=== PATIENT | female | born 1955 | race Caucasian/White ===

== ENCOUNTER 2021-10-09 11:29 | Outpatient (CLI) | payer OTHER, SELFPAY ==
--- NOTE | 2021-10-09 11:40 | CRLHL7_ITS ---
For Patients: As a result of the Century Cures Act, medical imaging exams and procedure reports are released immediately into your electronic medical record. You may view this report before your referring provider. If you have questions, please contact your health care provider. BILATERAL MAMMOGRAM WITH COMPUTER-AIDED DETECTION AND TOMOSYNTHESIS TECHNIQUE: CC and MLO views were obtained. These mammographic images have been obtained using full-field digital technique. These mammographic images were interpreted with the benefit of computer-aided detection. Breast Tomosynthesis was used in this interpretation. COMPARISON FILM: 08/26/2020, 05/25/2019, 01/18/2018. FINDINGS: The breasts are almost entirely fatty IMPRESSION: There is no radiographic evidence for malignancy. ASSESSMENT: BI-RADS Category 1: Negative RECOMMENDATION: Routine screening mammogram in 1 year. A lay language report of this examination will be provided to the patient. Wagner Soto M.D. Diagnostic Radiologist [email or web address] DANIEL/Dictated by: Wagner Soto MD @ 10/10/2021 10:22:00 AM (Electronically Signed)
== END 2021-10-09 11:30 | disposition home or self-care (01) ==
LOC: MAMMO 11:32
PROVIDERS: PCP Internal Medicine; Visit Provider Internal Medicine
DX: Z12.31 Encounter for screening mammogram for malignant neoplasm of breast (principal)
CPT/HCPCS: 77063; 77067

== ENCOUNTER 2022-10-27 08:17 | Outpatient (CLI) | payer OTHER, SELFPAY | END 2022-10-27 08:18 | disposition home or self-care (01) | LOC: NFLDREF 10-28 11:49 | PROVIDERS: PCP Internal Medicine; Referring Provider Internal Medicine; Visit Provider Internal Medicine | DX: M85.80 Other specified disorders of bone density and structure, unspecified site (principal); E78.5 Hyperlipidemia, unspecified; I10 Essential (primary) hypertension | CPT/HCPCS: 80053; 80061; 82306 ==

== ENCOUNTER 2023-02-15 13:45 | Outpatient (CLI) | payer OTHER, SELFPAY ==
--- NOTE | 2023-02-15 14:00 | CRLHL7_ITS ---
For Patients: As a result of the Century Cures Act, medical imaging exams and procedure reports are released immediately into your electronic medical record. You may view this report before your referring provider. If you have questions, please contact your health care provider. BILATERAL SCREENING MAMMOGRAM WITH COMPUTER-AIDED DETECTION AND TOMOSYNTHESIS TECHNIQUE: CC and MLO views were obtained. These mammographic images have been obtained using full-field digital technique. These mammographic images were interpreted with the benefit of computer-aided detection. Breast Tomosynthesis was used in this interpretation. COMPARISON FILM: 10/09/21, 08/26/20, 05/25/19. FINDINGS: There are scattered areas of fibroglandular density IMPRESSION: There is no radiographic evidence for malignancy. ASSESSMENT: BI-RADS Category 1: Negative RECOMMENDATION: Routine screening mammogram in 1 year. A lay language report of this examination will be provided to the patient. Wagner Soto M.D. Diagnostic Radiologist [email or web address] DANIEL/Dictated by: Wagner Soto MD @ 02/16/2023 8:53:00 AM (Electronically Signed)
== END 2023-02-15 13:46 | disposition home or self-care (01) ==
LOC: MAMMO 13:45
PROVIDERS: PCP Internal Medicine; Visit Provider Internal Medicine
DX: Z12.31 Encounter for screening mammogram for malignant neoplasm of breast (principal)
CPT/HCPCS: 77063; 77067

== ENCOUNTER 2023-09-29 10:30 | Outpatient (RCR) | payer OTHER, SELFPAY | END 2023-12-27 08:59 | disposition home or self-care (01) | PROVIDERS: PCP Internal Medicine; Visit Provider Orthopaedic Surgery | DX: M70.61 Trochanteric bursitis, right hip (principal); M17.11 Unilateral primary osteoarthritis, right knee; Z51.89 Encounter for other specified aftercare; M16.11 Unilateral primary osteoarthritis, right hip | CPT/HCPCS: 97110; 97140; 97161; 97535 ==

== ENCOUNTER 2023-10-20 08:57 | Outpatient (CLI) | payer OTHER, SELFPAY ==
--- OUTSIDE RECORDS SUMMARY | 2023-10-20 09:01 | XMS_ITS | Referral Summary ---
Author Organization [place] Address [address] [place] [address] Care Team Providers Care Ip Counsel Name Role Phone Carolina Celis MD Primary Care Provider [phone] Allergies Active Allergy Reactions Criticality Noted Date Comments Amoxicillin 12/24/2017 Intermediate hives Cephalosporins Hives 12/24/2017 Sulfa Antibiotics Hives 12/24/2017 Medications Medication Sig Dispensed Refills Start Date End Date Status LISINOPRIL PO Take 5 mg by mouth daily Active [place]-3 Fatty Acids (OMEGA 3 PO) Take 1 capsule by mouth daily Active Calcium Carb-Cholecalciferol 600-400 MG-UNIT CAPS Take 1 tablet by mouth daily Active Multiple Vitamins-Minerals (MULTIVITAMIN ADULT PO) Take 1 tablet by mouth daily Active Social History Tobacco Use Types Packs/Day Years Used Date Smoking Tobacco: Never Smokeless Tobacco: Never Alcohol Use Standard Drinks/Week Comments Yes 0 (1 standard drink = 0.6 oz pur e alcohol) RARELY Sex and Gender Information Value Date Recorded Sex Assigned at Not on file Gender Identity Not on file Sexual Orientation Not on file Last Filed Vital Signs Vital Sign Reading Time Taken Comments Blood Pressure 117/67 01/10/2018 8:18 AM CDT Pulse 65 12/27/2017 6:29 AM CDT Temperature 36.7 ??C (98 ??F) 01/10/2018 6:37 AM CDT Respiratory Rate 16 01/10/2018 7:54 AM CDT Oxygen Saturation 97% 01/10/2018 8:18 AM CDT Inhaled Oxygen Concentration - - Weight 76.3 kg (168 lb 4 oz) 01/05/2018 7:00 AM CDT Height 165.1 cm (5' 5) 01/05/2018 7:00 AM CDT Body Mass Index 28 01/05/2018 7:00 AM CDT Plan of Treatment Not on file Medical Devices Implanted Type Area Fat Purification Worker Device Identifier Shelf Expiration Date Model / Serial / Lot Eye Imp Iol [place] Pcl Tecnis Zcb00 17.0 Implanted:Qty : 1 on 12/27/2017 by Colin Michael MD at [facility] Lens/Eye Implant Left: Eye ADVANCED [employer]ICAL OPT 10/13/2021 ZCB00 17.0 / [id number] / Eye Imp Iol Luis A Pcl Tecnis Zcb00 18.0 Implanted:Qty : 1 on 01/10/2018 by Colin Michael MD at [facility] Lens/Eye Implant Right: Eye ADVANCED MEDICAL OPT 06/08/2021 ZCB00 18.0 / [id number] / Care Teams Ip Counsel Relationship Specialty Start Date End Date Carolina Celis MD [facility] [address] [place] [address] PCP - General Internal Medicine 12/21/17
--- OUTSIDE RECORDS SUMMARY | 2023-10-20 09:01 | XMS_ITS | Clinical Summary ---
Author Organization [place] Address [address] [place] [address] Care Team Providers Care Veneer Supervisor Name Role Phone Carolina Celis MD Primary Care Provider Allergies Active Allergy Reactions Criticality Noted Date Comments Amoxicillin 12/24/2017 Intermediate hives Cephalosporins Hives 12/24/2017 Sulfa Antibiotics Hives 12/24/2017 Medications Medication Sig Dispensed Refills Start Date End Date Status LISINOPRIL PO Take 5 mg by mouth daily Active [place]-3 Fatty Acids (OMEGA 3 PO) Take 1 [...] on file Medical Devices Implanted Type Area Abnormal Psychology Teacher Device Identifier Shelf Expiration Date Model / Serial / Lot Eye Imp Iol [place] Pcl Tecnis Zcb00 17.0 Implanted:Qty : 1 on 12/27/2017 by Colin Michael MD at [facility] Lens/Eye Implant Left: Eye ADVANCED MEDICAL OPT 10/13/2021 ZCB00 17.0 / [id number] / Eye Imp Iol Luis A Pcl Tecnis Zcb00 18.0 Implanted:Qty : 1 on 01/10/2018 by Colin Michael MD at [facility] Lens/Eye Implant Right: Eye ADVANCED MEDICAL OPT 06/08/2021 ZCB00 18.0 / [id number] / Care Teams Veneer Supervisor Relationship Specialty Start Date End Date Carolina Celis MD [facility] [address] [place] [address] PCP - General Internal Medicine 12/21/17
--- NOTE | 2023-10-20 09:15 | CRLHL7_ITS ---
For Patients: As a result of the Century Cures Act, medical imaging exams and procedure reports are released immediately into your electronic medical record. You may view this report before your referring provider. If you have questions, please contact your health care provider. Indication: Trochanteric bursitis, right hip Comparison: 09/01/2023 Procedure : Informed consent was obtained. The site was marked. Time-out was performed. The skin of the right hip was cleansed with ChloraPrep. A sterile drape was placed. 8 cc of 1 percent lidocaine was administered for superficial anesthesia. Subsequently a 22 gauge spinal needle was introduced into the right hip joint under intermittent fluoroscopic guidance. 7 cc 1 percent lidocaine and 2 cc 40 milligram/cc Depo-Medrol then injected into the right hip joint. The needle was removed and hemostasis achieved with direct pressure. A dressing was placed. The patient tolerated the procedure well without immediate complication. Total fluoroscopy time 6 seconds. Impression: Successful fluoroscopically guided right hip injection with 80 milligrams of Depo-Medrol. Dictated by Wagner Soto MD @ 10/20/2023 11:31:43 AM (Electronically Signed)
== END 2023-10-20 08:58 | disposition home or self-care (01) ==
LOC: RAD 08:59
PROVIDERS: PCP Internal Medicine; Visit Provider Orthopaedic Surgery
DX: M70.61 Trochanteric bursitis, right hip (principal); M16.11 Unilateral primary osteoarthritis, right hip
CPT/HCPCS: 20610; 77002; J1010; Q9966

== ENCOUNTER 2023-12-17 07:50 | Outpatient (CLI) | payer OTHER, SELFPAY ==
--- OUTSIDE RECORDS SUMMARY | 2023-12-21 04:06 | XMS_ITS | Referral Summary ---
Author Organization [place] Address [address] [place] [address] Care Team Providers Care Textile Clothing And Footwear Mechanic Name Role Phone Carolina Celis MD Primary Care Provider Allergies Active Allergy Reactions Criticality Noted Date Comments Amoxicillin 12/24/2017 Intermediate hives Cephalosporins Hives 12/24/2017 Sulfa Antibiotics Hives 12/24/2017 Medications Medication Sig Dispensed Refills Start Date End Date Status LISINOPRIL PO Take 5 mg by mouth daily Active [place]-3 Fatty Acids (OMEGA 3 PO) Take 1 [...] on file Medical Devices Implanted Type Area Ruby Developer Device Identifier Shelf Expiration Date Model / Serial / Lot Eye Imp Iol [place] Pcl Tecnis Zcb00 17.0 Implanted:Qty : 1 on 12/27/2017 by Colin Michael MD at [facility] Lens/Eye Implant Left: Eye ADVANCED MEDICAL OPT 10/13/2021 ZCB00 17.0 / [id number] / Eye Imp Iol Luis A Pcl Tecnis Zcb00 18.0 Implanted:Qty : 1 on 01/10/2018 by Colin Michael MD at [facility] Lens/Eye Implant Right: Eye ADVANCED MEDICAL OPT 06/08/2021 ZCB00 18.0 / [id number] / Care Teams Textile Clothing And Footwear Mechanic Relationship Specialty Start Date End Date Carolina Ceils MD [facility] [address] [place] [address] PCP - General Internal Medicine 12/21/17
--- OUTSIDE RECORDS SUMMARY | 2023-12-21 04:06 | XMS_ITS | Clinical Summary ---
Author Organization [place] Address [address] [place] [address] Care Team Providers Care Aircraft Stress Analyst Name Role Phone Carolina Celis MD Primary Care Provider [phone] Allergies Active Allergy Reactions Criticality Noted Date Comments Amoxicillin 12/24/2017 Intermediate hives Cephalosporins Hives 12/24/2017 Sulfa Antibiotics Hives 12/24/2017 Medications Medication Sig Dispensed Refills Start Date End Date Status LISINOPRIL PO Take 5 mg by mouth daily Active [place]-3 Fatty Acids (OMEGA 3 PO) Take 1 [...] on file Medical Devices Implanted Type Area Chip Mixing Machine Operator Device Identifier Shelf Expiration Date Model / Serial / Lot Eye Imp Iol [place] Pcl Tecnis Zcb00 17.0 Implanted:Qty : 1 on 12/27/2017 by Colin Michael MD at [facility] Lens/Eye Implant Left: Eye ADVANCED MEDICAL OPT 10/13/2021 ZCB00 17.0 / [id number] / Eye Imp Iol Luis A Pcl Tecnis Zcb00 18.0 Implanted:Qty : 1 on 01/10/2018 by Colin Michael MD at [facility] Lens/Eye Implant Right: Eye ADVANCED MEDICAL OPT 06/08/2021 ZCB00 18.0 / [id number] / Care Teams Aircraft Stress Analyst Relationship Specialty Start Date End Date Carolina Celis MD [facility] [address] [place] [address] PCP - General Internal Medicine 12/21/17
== END 2023-12-17 07:51 | disposition home or self-care (01) ==
LOC: NFLDREF 12-21 04:04
PROVIDERS: PCP Internal Medicine; Referring Provider Internal Medicine; Visit Provider Internal Medicine
DX: M85.80 Other specified disorders of bone density and structure, unspecified site (principal); K76.0 Fatty (change of) liver, not elsewhere classified; I10 Essential (primary) hypertension
CPT/HCPCS: 80053; 80061; 82306

== ENCOUNTER 2024-02-17 13:53 | Outpatient (CLI) | payer OTHER, SELFPAY ==
--- OUTSIDE RECORDS SUMMARY | 2024-02-17 13:55 | XMS_ITS | Clinical Summary ---
Author Organization [place] Address [address] [place] [address] Care Team Providers Care Final Canoe Inspector Name Role Phone Carolina Celis MD Primary Care Provider [phone] Allergies Active Allergy Reactions Criticality Noted Date Comments Amoxicillin 12/24/2017 Intermediate hives Cephalosporins Hives 12/24/2017 Sulfa Antibiotics Hives 12/24/2017 Medications LISINOPRIL PO Take 5 mg by mouth daily Active [place]-3 Fatty Acids (OMEGA 3 PO) Take 1 capsule by mouth daily Active Calcium Carb-Cholecalci ferol 600-400 MG-UNIT CAPS Take 1 tablet by mouth daily Active Multiple Vitamins-[place] (MULTIVITAMIN ADULT PO) Take 1 tablet by mouth daily Active Social History Tobacco Use Types Packs/Day Years Used Date Smoking Tobacco: Never Smokeless Tobacco: Never Alcohol Use Standard Drinks/Week Comments Yes 0 (1 standard drink = 0.6 oz pur e alcohol) RARELY Comments No Sex and Gender Information Value Date Recorded Sex Assigned at Not on file Legal Sex 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 Gender Identity Not on file Sexual Orientation [...] on file Medical Devices Implanted Type Area Plant Technical Specialist Device Identifier Shelf Expiration Date Model / Serial / Lot Eye Imp Iol [place] Pcl Tecnis Zcb00 17.0 Implanted:Qty : 1 on 12/27/2017 by Colin Michael MD at [facility] Lens/Eye Implant Left: Eye ADVANCED MEDICAL OPT 10/13/2021 ZCB00 17.0 / [id number] / Eye Imp Iol [place] Pcl Tecnis Zcb00 18.0 Implanted:Qty : 1 on 01/10/2018 by Colin Michael MD at [facility] Lens/Eye Implant Right: Eye ADVANCED MEDICAL OPT 06/08/2021 ZCB00 18.0 / [id number] / [facility] Care Teams Final Canoe Inspector Relationship Specialty Start Date End Date Carolina Celis MD [facility] [address] [place] [address] PCP - General Internal Medicine 12/21/17
--- NOTE | 2024-02-17 14:00 | CRLHL7_ITS ---
For Patients: As a result of the Century Cures Act, medical imaging exams and procedure reports are released immediately into your electronic medical record. You may view this report before your referring provider. If you have questions, please contact your health care provider. BILATERAL SCREENING MAMMOGRAM WITH COMPUTER-AIDED DETECTION AND TOMOSYNTHESIS TECHNIQUE: CC and MLO views were obtained. These mammographic images have been obtained using full-field digital technique. These mammographic images were interpreted with the benefit of computer-aided detection. Breast Tomosynthesis was used in this interpretation. COMPARISON FILM: 02/15/23, 10/09/21, 08/26/20. FINDINGS: There are scattered areas of fibroglandular density. IMPRESSION: There is no radiographic evidence for malignancy. ASSESSMENT: BI-RADS Category 1: Negative RECOMMENDATION: Routine screening mammogram in 1 year. A lay language report of this examination will be provided to the patient. Wagner Soto M.D. Diagnostic Radiologist [email or web address] SP/Dictated by: Wagner Soto MD @ 02/18/2024 12:38:00 PM (Electronically Signed)
== END 2024-02-17 13:54 | disposition home or self-care (01) ==
LOC: MAMMO 13:54
PROVIDERS: PCP Internal Medicine; Visit Provider Internal Medicine
DX: Z12.31 Encounter for screening mammogram for malignant neoplasm of breast (principal)
CPT/HCPCS: 77063; 77067

== ENCOUNTER 2025-02-13 01:10 | Day surgery (SDC) | payer OTHER, SELFPAY ==
[2025-02-13] VITALS (33 sets, daily range): BP systolic 111–206; BP diastolic 51–78; PULSE 52–78; RESP 14–20; TEMP 36–37.3; O2SAT 87–97; BMI 29.6; BMI 29.5
--- OUTSIDE RECORDS SUMMARY | 2025-02-13 01:11 | XMS_ITS | Clinical Summary ---
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 Gender Identity Not on file Sexual Orientation Not on file Last Filed Vital Signs Vital Sign Reading Time Taken Comments Blood Pressure 117/67 01/10/2018 8:18 AM CDT Pulse 65 12/27/2017 6:29 AM CDT Temperature 36.7 C (98 F) 01/10/2018 6:37 AM CDT Respiratory Rate 16 01/10/2018 7:54 AM CDT Oxygen Saturation 97% 01/10/2018 8:18 AM CDT Inhaled Oxygen Concentration - - Weight 76.3 kg (168 lb 4 oz) 01/05/2018 7:00 AM CDT Height 165.1 cm (5' 5) 01/05/2018 7:00 AM CDT Body Mass Index 28 01/05/2018 7:00 AM CDT Plan of Treatment Not on file Medical Devices Implanted Type Area State Assessed Properties Director Device Identifier Shelf Expiration Date Model / Serial / Lot Eye Imp Iol [place] Pcl Tecnis Zcb00 17.0 Implanted:Qty : 1 on 12/27/2017 by Colin Michael MD at [facility] Lens/Eye Implant Left: Eye ADVANCED MEDICAL OPT 10/13/2021 ZCB00 17.0 / [id number] / Eye Imp Iol [place] Pcl Tecnis Zcb00 18.0 Implanted:Qty : 1 on 01/10/2018 by Colin Michael MD at [facility] Lens/Eye Implant Right: Eye ADVANCED MEDICAL OPT 06/08/2021 ZCB00 18.0 / [id number] / [facility] Care Teams Architectural Examiner Relationship Specialty Start Date End Date Carolina Celis MD [facility] [address] [place] [address] PCP - General Internal Medicine 12/21/17
--- NOTE | 2025-02-13 01:29 | ED.GENADULT ---
HPI - General Adult General Time Seen by Provider: 01:29 Date Seen: 02/13/25 Chief complaint: Nausea/Vomiting Stated complaint: Vomiting, pain around ribs Time Seen by Provider: 02/13/25 01:13 Source: patient and RN notes reviewed Mode of arrival: ambulatory Limitations: no limitations History of Present Illness HPI narrative: This 69-year-old female had sudden onset of vomiting starting around 9:00 p.m. tonight. She has developed bilateral lower rib pain which she thinks might be from vomiting so much. She states she had a temperature of 100.1? F at home. She tried Tums without relief. She has had no headache, no diarrhea or any other respiratory symptoms associated with this. She does believes that she was having a little upper abdominal discomfort before the vomiting, did have some nausea. Thought maybe she had indigestion which prompted the Tums. She did subsequently start having emesis. It is turned into greenish bile/bilious at this point. No blood. She still has her gallbladder in place, notes her sister in both of her parents have had their gallbladder out. She ate out for lunch, just had a bowl of cereal around 7:00 p.m. she states she is hurting in her rib areas but actually is pointing to her upper abdomen lower rib borders bilaterally. Related Data Home Medications ?Medication ?Instructions ?Recorded ?Confirmed acyclovir 200 mg capsule 200 mg PO 5XD PRN 10/29/22 02/13/25 calcium 600 mg (as 1 tab PO DAILY 10/29/22 02/13/25 carbonate)-vitamin D3 10 mcg (400 unit) tablet multivitamin (Multiple Vitamins 1 tab PO DAILY 10/29/22 02/13/25 tablet) lisinopril 10 mg tablet 10 mg PO DAILY 02/13/25 02/13/25 Previous Rx's ?Medication ?Instructions ?Recorded hydrocodone 5 mg-acetaminophen 325 1 tab PO Q6H PRN pain #15 tabs 02/13/25 mg tablet sennosides 8.6 mg capsule (senna) 8.6 mg PO DAILY PRN constipation 02/13/25 #90 caps Allergies Allergy/AdvReac Type Severity Reaction Status Date / Time amoxicillin Allergy Intermediate Hives Verified 02/13/25 01:26 Cephalosporins Allergy Intermediate Hives Verified 02/13/25 01:26 Sulfa drugs Allergy Intermediate Hives Uncoded 12/21/23 10:33 Review of Systems Status of ROS: Reports: 6 or more systems reviewed and unremarkable except as noted in History and below PFSH [facility] Medical History (Updated 02/13/25 @ 09:52 by Amy Velázquez MD) Chronic migraine without aura ?G43.709 - Chronic migraine without aura, not intractable, without status migrainosus (ICD-10) Osteopenia (2016) ?M85.80 - Other specified disorders of bone density and structure, unspecified site (ICD-10) Greater trochanteric bursitis of right hip ?M70.61 - Trochanteric bursitis, right hip (ICD-10) Degenerative joint disease of knee, right ?M17.11 - Unilateral primary osteoarthritis, right knee (ICD-10) Degenerative joint disease of right hip ?M16.11 - Unilateral primary osteoarthritis, right hip (ICD-10) Cerebral cavernous malformation ?Q28.3 - Other malformations of cerebral vessels (ICD-10) Fatty infiltration of liver ?K76.0 - Fatty (change of) liver, not elsewhere classified (ICD-10) Essential hypertension ?I10 - Essential (primary) hypertension (ICD-10) Surgical History History of surgery on lower extremity ?Z98.890 - Other specified postprocedural states (ICD-10) History of squamous cell carcinoma excision ?Z98.890 - Other specified postprocedural states (ICD-10) ?Z85.9 - Personal history of malignant neoplasm, unspecified (ICD-10) History of basal cell carcinoma excision ?Z98.890 - Other specified postprocedural states (ICD-10) ?Z85.828 - Personal history of other malignant neoplasm of skin (ICD-10) History of tubal ligation (01/03/13) ?Z98.51 - Tubal ligation status (ICD-10) History of bilateral cataract extraction (2018) ?Z98.41 - Cataract extraction status, right eye (ICD-10) ?Z98.42 - Cataract extraction status, left eye (ICD-10) Social History (Updated 02/13/25 @ 09:51 by Amy Velázquez MD) Narrative: Lives with , adult children. Nonsmoker, rare ETOH. What is your current living situation?: I presently have a place to live Problems where you live: no known problems In the past 12 months, utilities in danger of being shut off: no In past 12 months, lack of transportation kept you from medical appts, meetings, work, or getting things needed for daily living: no In the past 12 mos, have been you worried that your food would run out before you had money to buy more?: never true In the past 12 mos, the food you bought just didn't last and you didn't have money to buy more?: never true Smoking Status: Never smoker Do you use any of these nicotine containing products: None How often do you have a drink containing alcohol: monthly or less Alcohol type: wine How often do you have six or more drinks on one occasion: Never AUDIT-C Alcohol total score: 1 Non-prescribed substance use: denies use Caffeine: Yes How often does anyone, including family, friends and others, physically hurt you: never How often does anyone, including family, friends and others, insult or talk down to you: never How often does anyone, including family, friends and others, threaten you with harm: never How often does anyone, including family, friends and others, scream or curse at you: never service: No Exam Const: Vital Signs, click to edit/add: Vital Signs - 24 hr 02/14/25 02:05 02/14/25 06:00 Temperature 98.8 F 98.3 F Pulse Rate [Pulse Oximeter] 53 L 53 L Respiratory Rate 15 17 Blood Pressure [Le ft Arm] 108/51 L 137/62 Pulse Oximetry 93 93 Oxygen Delivery Me thod Room Air Room Air This 6-year-old female is alert, interactive, no apparent distress, very well kept and pleasant. Sclera clear come conjugate gaze, face atraumatic, no rash. Lungs are clear come good air entry, no wheezing crackles, no tachypnea, no accessory muscle use. CV regular rate and rhythm, no murmur, normal S1-S2. Abdomen is soft, nondistended, bowel sounds are present. She has some mild left upper quadrant tenderness becoming more tender on palpation with increased pain in the epigastric and right upper quadrant areas. She may even be considered to have a little bit of guarding in the epigastric and right upper quadrant area but no rebound noted. I do not feel any organomegaly or masses. Skin visualized without jaundice. Documenting provider has reviewed patient's vital signs: yes Course Course ED Course: Patient will have an IV placed, treat her symptoms with a L of IV fluids, 4 mg IV Zofran and 4 mg IV morphine. She will be put on pulse oximetry to monitor respiratory status given the IV narcotic. Will proceed with CT imaging, ultrasonography is not in house at this time, this will make sure that there is no pancreatitis. Certainly could be cholelithiasis and do need to consider cholecystitis with this patient. Will get a full complement of labs. She may end up needing ultrasonography as well and will consider this pending our workup as ordered. Reevaluation(s) Time of Reevaluation #1: 02:28 Reevaluation #1: Patient states the morphine helped some, is still uncomfortable to the point that she would like more pain medicines. Will order 2 more mg IV morphine. Consider escalation to other medications if this does not help. Awaiting CT imaging. Time of Reevaluation #2: 04:11 Reevaluation #2: Patient is given her CT report. She has had subsequent vomiting, feels her pain is actually worsening. Will give her a dose of Dilaudid, re-dose the Zofran. I am starting maintenance lactated Ringer's. We will see if she responds to the dilaudid. Will be talking to General surgery, need to see if they are okay with imaging based on the CT or a if she really would prefer the ultrasound. Time of Reevaluation #3: 06:56 Reevaluation #3: Patient's pain has worsen, she is vomiting again. Will try another dose of IV Dilaudid with some IV Benadryl. If this does not work, may consider something like Compazine for her nausea. Consultations Consultation #1: Did speak with Dr. Mccollum, patient will have surgery later today. Will start IV antibiotics with Cipro and Flagyl given her allergy profile. Will page the hospitalist service. Dr. Mccollum will be looking at imaging but at this point she does think that the CT and workup done thus far should be sufficient. She will let me know if she does decide she wants the ultrasound done. Time: 06:25 Consultation #2: Still have not heard back from the overnight hospitalist service. Did call the daytime hospitalist an thankfully Dr. Cisneros had just arrived. We discussed the case. He will accept the patient on behalf of surgery while she awaits surgery. Time: 06:55 Vital Signs Vital signs: Initial Vital Signs Temperature 96.9 F L 02/13/25 01:16 Temperature Source Temporal Artery Scan 02/13/25 01:16 Pulse Rate 56 L 02/13/25 01:16 Pulse Rhythm Regular 02/13/25 01:16 Respiratory Rate 19 02/13/25 01:16 Blood Pressure 206/78 H 02/13/25 01:16 Blood Pressure Mean 120 H 02/13/25 01:16 Blood Pressure Position Sitting 02/13/25 01:16 Pulse Oximetry 97 02/13/25 01:16 Oxygen Delivery Method Room Air 02/13/25 01:16 Vital Signs Temperature 96.9 F L 02/13/25 01:16 Pulse Rate 56 L 02/13/25 01:16 Respiratory Rate 19 02/13/25 01:16 Blood Pressure 206/78 H 02/13/25 01:16 Pulse Oximetry 97 02/13/25 01:16 Oxygen Delivery Method Room Air 02/13/25 01:16 Temperature 98.3 F 02/14/25 06:00 Pulse Rate 53 L 02/14/25 06:00 Respiratory Rate 17 02/14/25 06:00 Blood Pressure 137/62 02/14/25 06:00 Pulse Oximetry 93 02/14/25 06:00 Oxygen Delivery Method Room Air 02/14/25 06:00 Oxygen Flow Rate 2 02/13/25 15:40 Medications Administered Medications: Discontinued Medications Generic Name Dose Route Start Last Admin Trade Name Freq PRN Reason Stop Dose Admin Acetaminophen 650 mg 02/13/25 16:20 02/13/25 18:18 Acetaminophen 325 Mg Tablet PO 650 mg Q4H PRN Administration Pain Hydrocodone Bitart/Acetaminophen 1 - 2 tab 02/13/25 16:20 02/14/25 05:51 Hydrocodone-Acetamin 5-325 Mg 1 Tab PO 1 tab Q4H PRN Administration Pain Bupivacaine HCl 30 ml 02/13/25 14:26 02/13/25 14:20 Bupivacaine 0.5% 30 Ml INJECTION 02/13/25 14:27 20 ml ONCE ONE Administration Diphenhydramine HCl 25 mg 02/13/25 06:54 02/13/25 07:13 Diphenhydramine 50 Mg/Ml Inj IVP 02/13/25 06:55 25 mg ONCE ONE Administration Hydromorphone HCl 0.5 mg 02/13/25 04:08 02/13/25 04:21 Hydromorphone 0.5 Mg/0.5 Ml Inj IVP 02/13/25 04:09 0.5 mg ONCE ONE Administration Hydromorphone HCl 0.5 mg 02/13/25 06:54 02/13/25 07:15 Hydromorphone 0.5 Mg/0.5 Ml Inj IVP 02/13/25 06:55 0.5 mg ONCE ONE Administration Hydromorphone HCl 0.5 mg 02/13/25 08:22 02/13/25 10:01 Hydromorphone 0.5 Mg/0.5 Ml Inj IVP 0.5 mg Q2H PRN Administration Pain Hydroxyzine Pamoate 25 mg 02/13/25 15:45 02/13/25 17:34 Hydroxyzine Pamoate 25 Mg Capsule PO 02/13/25 15:46 Not Given ONCE ONE Sodium Chloride 1,000 mls @ 500 mls/hr 02/13/25 01:35 02/13/25 03:26 0.9 % Sodium Chloride 1000 Ml IV 02/13/25 03:34 Infused .Q2H PIPO Infusion Lactated Ringer's 1,000 mls @ 125 mls/hr 02/13/25 04:10 02/13/25 07:18 Lactated Ringers 1000 Ml IV 0 mls/hr .Q8H PIPO Infusion Ciprofloxacin 400 mg in 200 mls @ 200 mls/hr 02/13/25 06:28 02/13/25 17:35 Ciprofloxacin IVPB Infused Q12H PIPO Infusion Metronidazole 500 mg in 100 mls @ 100 mls/hr 02/13/25 06:28 02/13/25 17:35 Metronidazole IVPB 02/13/25 07:27 Infused ONCE ONE Infusion Lactated Ringer's 1,000 mls @ 125 mls/hr 02/13/25 14:05 02/13/25 16:04 Lactated Ringers 1000 Ml IV 30 mls/hr .Q8H PIPO Infusion Lactated Ringer's 1,000 mls @ 100 mls/hr 02/13/25 14:15 02/13/25 17:34 Lactated Ringers 1000 Ml IV Not Given .Q10H PIPO Morphine Sulfate 4 mg 02/13/25 01:34 02/13/25 01:56 Morphine 4 Mg/Ml Inj IVP 02/13/25 01:35 4 mg ONCE ONE Administration Morphine Sulfate 2 mg 02/13/25 02:28 02/13/25 02:39 Morphine 2 Mg/Ml Inj IVP 02/13/25 02:29 2 mg ONCE ONE Administration Ondansetron HCl 4 mg 02/13/25 01:34 02/13/25 01:54 Ondansetron 2 Mg/Ml Inj IVP 02/13/25 01:35 4 mg ONCE ONE Administration Ondansetron HCl 4 mg 02/13/25 04:12 02/13/25 04:27 Ondansetron 2 Mg/Ml Inj IVP 02/13/25 04:13 4 mg ONCE ONE Administration Prochlorperazine 5 mg 02/13/25 15:45 02/13/25 17:34 Prochlorperazine 5 Mg/Ml Vial IVP 02/13/25 15:46 Not Given ONCE ONE Medical Decision Making Lab Data Lab results reviewed: Yes I reviewed the patient's lab results Labs: Lab Results 02/13/25 Range/Units 01:58 WBC 10.92 (4.50-11.00) K/uL RBC 4.98 (4.00-5.20) m/uL Hgb 14.1 (12.0-16.0) gm/dL Hct 43.9 (33.0-51.0) % MCV 88 (80-100) fL MCH 28 (26-34) pg MCHC 32 (32-36) gm/dL RDW Coeff of Joselyn 12.1 (11.5-15.5) % Plt Count 251 (140-440) K/uL Neut % (Auto) 86.2 H (42.0-72.0) % Lymph % (Auto) 10.1 L (20-44) % Elliott % (Auto) 3.0 (0.0-11.0) % Eos % (Auto) 0.3 (0.0-7.0) % Baso % (Auto) 0.1 (0.0-3.0) % Neut # (Auto) 9.40 H (1.7-7.0) K/uL Lymph # (Auto) 1.10 (0.90-2.90) K/uL Elliott # (Auto) 0.30 (0.00-0.90) K/UL Eos # (Auto) 0.03 (0.00-0.50) K/uL Baso # (Auto) 0.01 (0.00-0.30) K/uL Abs Immat Gran (auto) 0.03 (0.00-0.30) K/uL Imm/Tot Granulo (auto) 0.3 % Sodium 140 (135-149) mmol/L Potassium 4.0 (3.6-5.1) mmol/L Chloride 99 (96-114) mmol/L Carbon Dioxide 30 (20-32) mmol/L Anion Gap 11 (7-15) mEq/L BUN 23 (7-30) mg/dL Creatinine 0.7 (0.5-1.5) mg/dL Estimated Creat Clear 47.10 Estimated GFR 93 ml/min Glucose 170 H (60-115) mg/dL Lactate 1.2 (0.5-1.9) mmol/L Calcium 9.4 (8.4-10.6) mg/dL Total Bilirubin 0.3 (0.1-1.5) mg/dL Direct Bilirubin 0.2 (0.0-0.5) mg/dL AST 32 (12-35) U/L ALT 28 (4-35) U/L Alkaline Phosphatase 115 (40-150) U/L C-Reactive Protein 0.6 (0.5-1.0) mg/dL Total Protein 7.5 (6.0-8.3) g/dL Albumin 4.7 (3.3-5.0) g/dL Lipase 145 (23-300) U/L Imaging Data CT scan - abdomen: Attestation: I have reviewed the pertinent imaging results. Radiologist's impression: Patient: KENDELL SPARKS Facility:?[facility] Patient ID:?[id number] Site Patient ID:?[id number]. Site :?[id number] Study:?CT-Abdomen/Pelvis W/ISOVUE 370 88CC-02/13/2025 3:28:50 AM Ordering Physician:Mona Juarez Final Report: INDICATION: Abdominal pain and vomiting. TECHNIQUE: CT abdomen and pelvis acquired with 88 cc Isovue 370 IV contrast. COMPARISON: None. FINDINGS: Lower chest: Bibasilar atelectasis/scarring. Liver: Unremarkable. Gallbladder and bile ducts: Cholelithiasis with mild gallbladder distention. No biliary dilatation. Pancreas: Unremarkable. Spleen: Unremarkable. Adrenal glands: Unremarkable. Kidneys: Symmetric renal enhancement. Subcentimeter bilateral renal hypodensities are too small to characterize on this exam but likely reflect small cysts. No hydronephrosis or hydroureter. No obstructing calculi. GI tract: Tiny hiatal hernia. Small amount of fluid/debris within the distal esophagus. No bowel obstruction. Colonic diverticulosis without acute diverticulitis. No suspicious bowel wall thickening. Normal appendix. Vasculature: No abdominal aortic aneurysm. Grossly patent vasculature. Lymph nodes: No suspicious lymphadenopathy. Peritoneum/Abdominal Wall: No ascites or pneumoperitoneum. No acute abdominal wall abnormality. Pelvis: Normal bladder. No suspicious adnexal mass. Bones: No acute abnormality. IMPRESSION: 1. Cholelithiasis with mild gallbladder distention which may be seen in the setting of early acute cholecystitis. Consider further characterization with right upper quadrant ultrasound. 2. Small amount of fluid/debris within the distal esophagus, placing this patient at increased risk for aspiration. Please note that all CT scans at this facility use dose modulation, iterative reconstruction, and/or weight-based dosing when appropriate to reduce radiation dose to as low as reasonably achievable. Dictated by Shane Swanson MD @ 02/13/2025 3:58:33 AM (Electronic Signature) ECG Data Attestation: I personally reviewed and interpreted this ECG as follows: (Sinus bradycardia with sinus arrhythmia, 53 beats per minute.) Prior ECG tracings: not available for review Discharge Plan Discharge Clinical Impression: Acute calculous cholecystitis Patient Disposition: Admitted As Observation Activity Level: No strenuous activity Activity Detail: Activity as tolerated. Avoid strenuous activity. No lifting greater than 20 lb for 2 weeks. Discharge Diet: Low Fat/Low Cholesterol
--- NOTE | 2025-02-13 01:34 | CRLHL7_ITS ---
For Patients: As a result of the Century Cures Act, medical imaging exams and procedure reports are released immediately into your electronic medical record. You may view this report before your referring provider. If you have questions, please contact your health care provider. INDICATION: Abdominal pain and vomiting. TECHNIQUE: CT abdomen and pelvis acquired with 88 cc Isovue 370 IV contrast. COMPARISON: None. FINDINGS: Lower chest: Bibasilar atelectasis/scarring. Liver: Unremarkable. Gallbladder and bile ducts: Cholelithiasis with mild gallbladder distention. No biliary dilatation. Pancreas: Unremarkable. Spleen: Unremarkable. Adrenal glands: Unremarkable. Kidneys: Symmetric renal enhancement. Subcentimeter bilateral renal hypodensities are too small to characterize on this exam but likely reflect small cysts. No hydronephrosis or hydroureter. No obstructing calculi. GI tract: Tiny hiatal hernia. Small amount of fluid/debris within the distal esophagus. No bowel obstruction. Colonic diverticulosis without acute diverticulitis. No suspicious bowel wall thickening. Normal appendix. Vasculature: No abdominal aortic aneurysm. Grossly patent vasculature. Lymph nodes: No suspicious lymphadenopathy. Peritoneum/Abdominal Wall: No ascites or pneumoperitoneum. No acute abdominal wall abnormality. Pelvis: Normal bladder. No suspicious adnexal mass. Bones: No acute abnormality. IMPRESSION: 1. Cholelithiasis with mild gallbladder distention which may be seen in the setting of early acute cholecystitis. Consider further characterization with right upper quadrant ultrasound. 2. Small amount of fluid/debris within the distal esophagus, placing this patient at increased risk for aspiration. Please note that all CT scans at this facility use dose modulation, iterative reconstruction, and/or weight-based dosing when appropriate to reduce radiation dose to as low as reasonably achievable. Dictated by Shane Swanson MD @ 02/13/2025 3:58:33 AM (Electronically Signed)
[2025-02-13] MEDS: ONDANSETRON 2 MG/ML inj 4 MG IVP ×2 (01:54→04:27)
[2025-02-13] MEDS: MORPHINE 4 MG/ML INJ IVP (01:56)
[2025-02-13 02:03] LABS: Hematocrit* 43.9 % (33.0-51.0); Hemoglobin* 14.1 gm/dL (12.0-16.0); Immature Granulocytes Abs Auto 0.03 K/uL (0.00-0.30); Immature Granulocytes Pct Auto 0.3 %; Lactate* 1.2 mmol/L (0.5-1.9); Lymphocytes Absolute Auto 1.10 K/uL (0.90-2.90); Mean Corpuscular HGB Conc 32 gm/dL (32-36); Mean Corpuscular Hemoglobin 28 pg (26-34); Mean Corpuscular Volume 88 fL (80-100); RDW Coefficient of Variation % 12.1 % (11.5-15.5); Red Blood Count* 4.98 m/uL (4.00-5.20); White Blood Count* 10.92 K/uL (4.50-11.00)
[2025-02-13 02:04] LABS: Slide Review Reflex No
[2025-02-13 02:19] LABS: Albumin* 4.7 g/dL (3.3-5.0); Chloride* 99 mmol/L (96-114); Potassium* 4.0 mmol/L (3.6-5.1); Sodium* 140 mmol/L (135-149)
[2025-02-13 02:22] LABS: Alanine Aminotransferase* 28 U/L (4-35); Alkaline Phosphatase* 115 U/L (40-150); Anion Gap 11 mEq/L (7-15); Aspartate Amino Transferase* 32 U/L (12-35); Bilirubin Direct* 0.2 mg/dL (0.0-0.5); Bilirubin Total* 0.3 mg/dL (0.1-1.5); Blood Urea Nitrogen* 23 mg/dL (7-30); Calcium* 9.4 mg/dL (8.4-10.6); Carbon Dioxide* 30 mmol/L (20-32); Creatinine* 0.7 mg/dL (0.5-1.5); Est. Creatinine Clearance* 47.10; Estimated Glomerular Filt Rate 93 ml/min; Glucose* 170 mg/dL (60-115); Total Protein* 7.5 g/dL (6.0-8.3)
[2025-02-13] MEDS: LACTATED RINGERS 1000 ML 1,000 ML 125 ML IV ×2 (04:21→13:49)
[2025-02-13] MEDS: CIPROFLOXACIN 400 MG/200 ML PIGGYBACK 200 MG IVPB (07:03)
[2025-02-13] MEDS: metroNIDAZOLE 500 MG/100 ML PIGGYBACK 100 MG IVPB (07:25)
--- NOTE | 2025-02-13 08:41 | PM.GSCN ---
History of Present Illness Consult details Date Seen: 02/13/25 Consult date: 02/13/25 Narrative: Patient presented to the emergency department for abdominal pain, nausea and vomiting. At 8:00 p.m. last night she started to become nauseous and began throwing up. She threw up several times, with no improvement in her symptoms. She also reports pain in a band just underneath her ribcage. She has never experienced an episode like this. She does report some discomfort after meals which he thought was associated with reflux. For dinner last night she had a bowl of cereal with whole milk. She denies any fever. No diarrhea or constipation. She is still having pain this morning, although it is much better with IV pain medicine. Her surgical history includes a tubal ligation. Review of Systems Status of ROS: Reports: 10 or more systems reviewed and unremarkable except as noted in History and below [facility] Surgical History History of surgery on lower extremity ?Z98.890 - Other specified postprocedural states (ICD-10) History of squamous cell carcinoma excision ?Z98.890 - Other specified postprocedural states (ICD-10) ?Z85.9 - Personal history of malignant neoplasm, unspecified (ICD-10) History of basal cell carcinoma excision ?Z98.890 - Other specified postprocedural states (ICD-10) ?Z85.828 - Personal history of other malignant neoplasm of skin (ICD-10) History of tubal ligation (01/03/13) ?Z98.51 - Tubal ligation status (ICD-10) History of bilateral cataract extraction (2018) ?Z98.41 - Cataract extraction status, right eye (ICD-10) ?Z98.42 - Cataract extraction status, left eye (ICD-10) Social History What is your current living situation?: I presently have a place to live Problems where you live: no known problems In the past 12 months, utilities in danger of being shut off: no In past 12 months, lack of transportation kept you from medical appts, meetings, work, or getting things needed for daily living: no In the past 12 mos, have been you worried that your food would run out before you had money to buy more?: never true In the past 12 mos, the food you bought just didn't last and you didn't have money to buy more?: never true Smoking Status: Never smoker Do you use any of these nicotine containing products: None How often do you have a drink containing alcohol: monthly or less Alcohol type: wine How often do you have six or more drinks on one occasion: Never AUDIT-C Alcohol total score: 1 Non-prescribed substance use: denies use Caffeine: Yes How often does anyone, including family, friends and others, physically hurt you: never How often does anyone, including family, friends and others, insult or talk down to you: never How often does anyone, including family, friends and others, threaten you with harm: never How often does anyone, including family, friends and others, scream or curse at you: never service: No Meds Home Medications and Allergies Home Medications ?Medication ?Instructions ?Recorded ?Confirmed ?Type acyclovir 200 mg capsule 200 mg PO 5XD PRN 10/29/22 02/13/25 History calcium 600 mg (as 1 tab PO DAILY 10/29/22 02/13/25 History carbonate)-vitamin D3 10 mcg (400 unit) tablet multivitamin (Multiple Vitamins 1 tab PO DAILY 10/29/22 02/13/25 History tablet) hydrocodone 5 mg-acetaminophen 325 1 tab PO Q6H PRN pain #15 tabs 02/13/25 Rx mg tablet lisinopril 10 mg tablet 10 mg PO DAILY 02/13/25 02/13/25 History sennosides 8.6 mg capsule (senna) 8.6 mg PO DAILY PRN constipation 02/13/25 Rx #90 caps Allergies Allergy/AdvReac Type Severity Reaction Status Date / Time amoxicillin Allergy Intermediate Hives Verified 02/13/25 01:26 Cephalosporins Allergy Intermediate Hives Verified 02/13/25 01:26 Sulfa drugs Allergy Intermediate Hives Uncoded 12/21/23 10:33 Exam Narrative: Exam Narrative: General: Alert and oriented, no acute distress Respiratory: Equal breath rise bilaterally, maintained on room air CV: Well perfused Abdomen: Tender to palpation right upper quadrant, no guarding or rebound. Soft. Const: Vital Signs, click to edit/add: Vital Signs - 24 hr 02/13/25 01:16 02/13/25 02:30 02/13/25 02:58 Temperature 96.9 F L Pulse Rate 52 L Pulse Rate [Pulse Oximeter] Pulse Rate [Right Pulse Oximeter] 56 L 52 L Respiratory Rate 19 19 16 Blood Pressure Blood Pressure [Le ft Arm] Blood Pressure [Ri ght Upper Arm] 206/78 H Pulse Oximetry 97 94 87 L Oxygen Delivery Me thod Room Air Room Air Oxygen Flow Rate 02/13/25 03:00 02/13/25 04:00 02/13/25 04:04 Temperature 96.8 F L Pulse Rate 52 L 55 L Pulse Rate [Pulse Oximeter] Pulse Rate [Right Pulse Oximeter] 61 Respiratory Rate 20 19 Blood Pressure 169/75 H Blood Pressure [Le ft Arm] Blood Pressure [Ri ght Upper Arm] 169/75 H Pulse Oximetry 92 96 96 Oxygen Delivery Me thod Room Air Oxygen Flow Rate 02/13/25 04:53 02/13/25 05:30 02/13/25 06:00 Temperature Pulse Rate 60 56 L Pulse Rate [Pulse Oximeter] Pulse Rate [Right Pulse Oximeter] Respiratory Rate Blood Pressure Blood Pressure [Le ft Arm] Blood Pressure [Ri ght Upper Arm] Pulse Oximetry 93 93 96 Oxygen Delivery Me thod Nasal Cannula Nasal Cannula Oxygen Flow Rate 2 2 02/13/25 06:30 02/13/25 07:00 02/13/25 07:11 Temperature Pulse Rate 54 L 54 L 64 Pulse Rate [Pulse Oximeter] Pulse Rate [Right Pulse Oximeter] Respiratory Rate 20 Blood Pressure 146/59 H Blood Pressure [Le ft Arm] Blood Pressure [Ri ght Upper Arm] Pulse Oximetry 94 95 95 Oxygen Delivery Me thod Nasal Cannula Nasal Cannula Nasal Cannula Oxygen Flow Rate 2 2 2 02/13/25 07:32 02/13/25 08:10 Temperature 98.4 F Pulse Rate 59 L Pulse Rate [Pulse Oximeter] 65 Pulse Rate [Right Pulse Oximeter] Respiratory Rate 16 Blood Pressure 130/52 L Blood Pressure [Le ft Arm] 139/60 Blood Pressure [Ri ght Upper Arm] Pulse Oximetry 93 96 Oxygen Delivery Me thod Nasal Cannula Room Air Oxygen Flow Rate 2 Results Labs Labs: Abnormal lab results 02/13/25 Range/Units 01:58 Neut % (Auto) 86.2 H (42.0-72.0) % Lymph % (Auto) 10.1 L (20-44) % Neut # (Auto) 9.40 H (1.7-7.0) K/uL Glucose 170 H (60-115) mg/dL Diabetes panel 02/13/25 Range/Units 01:58 Sodium 140 (135-149) mmol/L Potassium 4.0 (3.6-5.1) mmol/L Chloride 99 (96-114) mmol/L Carbon Dioxide 30 (20-32) mmol/L BUN 23 (7-30) mg/dL Creatinine 0.7 (0.5-1.5) mg/dL Glucose 170 H (60-115) mg/dL Calcium 9.4 (8.4-10.6) mg/dL AST 32 (12-35) U/L ALT 28 (4-35) U/L Alkaline Phosphatase 115 (40-150) U/L Total Protein 7.5 (6.0-8.3) g/dL Albumin 4.7 (3.3-5.0) g/dL Calcium panel 02/13/25 Range/Units 01:58 Calcium 9.4 (8.4-10.6) mg/dL Albumin 4.7 (3.3-5.0) g/dL Pituitary panel 02/13/25 Range/Units 01:58 Sodium 140 (135-149) mmol/L Potassium 4.0 (3.6-5.1) mmol/L Chloride 99 (96-114) mmol/L Carbon Dioxide 30 (20-32) mmol/L BUN 23 (7-30) mg/dL Creatinine 0.7 (0.5-1.5) mg/dL Glucose 170 H (60-115) mg/dL Calcium 9.4 (8.4-10.6) mg/dL Adrenal panel 02/13/25 Range/Units 01:58 Sodium 140 (135-149) mmol/L Potassium 4.0 (3.6-5.1) mmol/L Chloride 99 (96-114) mmol/L Carbon Dioxide 30 (20-32) mmol/L BUN 23 (7-30) mg/dL Creatinine 0.7 (0.5-1.5) mg/dL Glucose 170 H (60-115) mg/dL Calcium 9.4 (8.4-10.6) mg/dL Total Bilirubin 0.3 (0.1-1.5) mg/dL AST 32 (12-35) U/L ALT 28 (4-35) U/L Alkaline Phosphatase 115 (40-150) U/L Total Protein 7.5 (6.0-8.3) g/dL Albumin 4.7 (3.3-5.0) g/dL All other labs normal. Imaging Abdomen CT scan report/results: report reviewed and image reviewed Progress Note:A&P Assessment and plan (1) Acute calculous cholecystitis: Status: Acute Assessment and Plan: Patient presents with clinical workup and history consistent with acute cholecystitis. Imaging and labs were reviewed. CT scan shows a distended gallbladder with multiple gallstones. Labs are within normal limits, no concern at this time for choledocholithiasis. I had a detailed conversation with the patient regarding the diagnosis of acute cholecystitis. We discussed the treatment options including observation with diet modification and laparoscopic cholecystectomy. We discussed the risks of surgery (including but not limited to) the risks of bleeding, infection, injury to other structures in the abdomen including bile duct injury, bile leak and conversion to an open operation. We discussed the possibility that the patient's pain not improve with surgery. We discussed the possibility of permanent post-operative diarrhea that may require medical management. Additionally, the conceivably of complications requiring additional surgery or further hospitalization were also discussed including the risks of RI, respiratory failure, stroke and blood clots. The patient voiced an understanding of our conversation, had the opportunity to ask questions, agreed to accept the risks of surgery and asked that we proceed with surgery. Plan -OR for laparoscopic cholecystectomy
--- NOTE | 2025-02-13 09:44 | PM.IMHP1 ---
Assessment and Plan Assessment and plan (1) Acute calculous cholecystitis: Problem comment: - to OR this afternoon - low risk for operative or anesthetic complications Status: Acute Plan - per above, anticipate short stay - son updated bedside, questions answered Hospitalist- H&P: HPI History of Present Illness Date Seen: 02/13/25 Chief complaint: Vomiting, pain around ribs Narrative: June Rocha is a 69 year old female who presented to the emergency room overnight for vomiting and abdominal pain, primarily epigastric region and right upper quadrant. No concerning exposures or sick contacts. ER: - reassuring CBC, CMP, lipase - CT consistent with cholelithiasis and gallbladder distension - general surgery consulted, plans for cholecystectomy later today June Ivy is requiring intermittent IV opiates and antiemetics, no other concerns for hospitalist team today. No history of anesthetic or operative complications during previous surgeries. PCP is Dr. Vimal hernandez. Review of Systems Status of ROS: Reports: 10 or more systems reviewed and unremarkable except as noted in History and below Medical Decision Making Medical Decision Making Has patient completed a Health Care Directive: Yes PFSH [facility] Medical History (Updated 02/13/25 @ 09:52 by Amy Velázquez MD) Chronic migraine without aura ?G43.709 - Chronic migraine without aura, not intractable, without status migrainosus (ICD-10) Osteopenia (2016) ?M85.80 - Other specified disorders of bone density and structure, unspecified site (ICD-10) Greater trochanteric bursitis of right hip ?M70.61 - Trochanteric bursitis, right hip (ICD-10) Degenerative joint disease of knee, right ?M17.11 - Unilateral primary osteoarthritis, right knee (ICD-10) Degenerative joint disease of right hip ?M16.11 - Unilateral primary osteoarthritis, right hip (ICD-10) Cerebral cavernous malformation ?Q28.3 - Other malformations of cerebral vessels (ICD-10) Fatty infiltration of liver ?K76.0 - Fatty (change of) liver, not elsewhere classified (ICD-10) Essential hypertension ?I10 - Essential (primary) hypertension (ICD-10) Surgical History History of surgery on lower extremity ?Z98.890 - Other specified postprocedural states (ICD-10) History of squamous cell carcinoma excision ?Z98.890 - Other specified postprocedural states (ICD-10) ?Z85.9 - Personal history of malignant neoplasm, unspecified (ICD-10) History of basal cell carcinoma excision ?Z98.890 - Other specified postprocedural states (ICD-10) ?Z85.828 - Personal history of other malignant neoplasm of skin (ICD-10) History of tubal ligation (01/03/13) ?Z98.51 - Tubal ligation status (ICD-10) History of bilateral cataract extraction (2018) ?Z98.41 - Cataract extraction status, right eye (ICD-10) ?Z98.42 - Cataract extraction status, left eye (ICD-10) Social History (Updated 02/13/25 @ 09:51 by Amy Velázquez MD) Narrative: Lives with , adult children. Nonsmoker, rare ETOH. What is your current living situation?: I presently have a place to live Problems where you live: no known problems In the past 12 months, utilities in danger of being shut off: no In past 12 months, lack of transportation kept you from medical appts, meetings, work, or getting things needed for daily living: no In the past 12 mos, have been you worried that your food would run out before you had money to buy more?: never true In the past 12 mos, the food you bought just didn't last and you didn't have money to buy more?: never true Smoking Status: Never smoker Do you use any of these nicotine containing products: None How often do you have a drink containing alcohol: monthly or less Alcohol type: wine How often do you have six or more drinks on one occasion: Never AUDIT-C Alcohol total score: 1 Non-prescribed substance use: denies use Caffeine: Yes How often does anyone, including family, friends and others, physically hurt you: never How often does anyone, including family, friends and others, insult or talk down to you: never How often does anyone, including family, friends and others, threaten you with harm: never How often does anyone, including family, friends and others, scream or curse at you: never service: No Meds Home Medications and Allergies Home Medications ?Medication ?Instructions ?Recorded ?Confirmed ?Type acyclovir 200 mg capsule 200 mg PO 5XD PRN 10/29/22 02/13/25 History calcium 600 mg (as 1 tab PO DAILY 10/29/22 02/13/25 History carbonate)-vitamin D3 10 mcg (400 unit) tablet multivitamin (Multiple Vitamins 1 tab PO DAILY 10/29/22 02/13/25 History tablet) hydrocodone 5 mg-acetaminophen 325 1 tab PO Q6H PRN pain #15 tabs 02/13/25 Rx mg tablet lisinopril 10 mg tablet 10 mg PO DAILY 02/13/25 02/13/25 History sennosides 8.6 mg capsule (senna) 8.6 mg PO DAILY PRN constipation 02/13/25 Rx #90 caps Allergies Allergy/AdvReac Type Severity Reaction Status Date / Time amoxicillin Allergy Intermediate Hives Verified 02/13/25 01:26 Cephalosporins Allergy Intermediate Hives Verified 02/13/25 01:26 Sulfa drugs Allergy Intermediate Hives Uncoded 12/21/23 10:33 Exam Narrative: Exam Narrative: GEN: Alert and oriented, nontoxic HEENT: EOMIs bilaterally, no scleral icterus CV: RRR, No concerning murmurs R: LCTA bilaterally Ab: + Javier's sign Ext: wwp, no concerning edema Skin: No concerning skin lesions or rashes on exposed skin Neuro: Nonfocal Psych: Appropriate Const: Vital Signs, click to edit/add: Vital Signs - 24 hr 02/13/25 01:16 02/13/25 02:30 02/13/25 02:58 Temperature 96.9 F L Pulse Rate 52 L Pulse Rate [Pulse Oximeter] Pulse Rate [Right Pulse Oximeter] 56 L 52 L Respiratory Rate 19 19 16 Blood Pressure Blood Pressure [Le ft Arm] Blood Pressure [Ri ght Upper Arm] 206/78 H Pulse Oximetry 97 94 87 L Oxygen Delivery Me thod Room Air Room Air Oxygen Flow Rate 02/13/25 03:00 02/13/25 04:00 02/13/25 04:04 Temperature 96.8 F L Pulse Rate 52 L 55 L Pulse Rate [Pulse Oximeter] Pulse Rate [Right Pulse Oximeter] 61 Respiratory Rate 20 19 Blood Pressure 169/75 H Blood Pressure [Le ft Arm] Blood Pressure [Ri ght Upper Arm] 169/75 H Pulse Oximetry 92 96 96 Oxygen Delivery Me thod Room Air Oxygen Flow Rate 02/13/25 04:53 02/13/25 05:30 02/13/25 06:00 Temperature Pulse Rate 60 56 L Pulse Rate [Pulse Oximeter] Pulse Rate [Right Pulse Oximeter] Respiratory Rate Blood Pressure Blood Pressure [Le ft Arm] Blood Pressure [Ri ght Upper Arm] Pulse Oximetry 93 93 96 Oxygen Delivery Me thod Nasal Cannula Nasal Cannula Oxygen Flow Rate 2 2 02/13/25 06:30 02/13/25 07:00 02/13/25 07:11 Temperature Pulse Rate 54 L 54 L 64 Pulse Rate [Pulse Oximeter] Pulse Rate [Right Pulse Oximeter] Respiratory Rate 20 Blood Pressure 146/59 H Blood Pressure [Le ft Arm] Blood Pressure [Ri ght Upper Arm] Pulse Oximetry 94 95 95 Oxygen Delivery Me thod Nasal Cannula Nasal Cannula Nasal Cannula Oxygen Flow Rate 2 2 2 02/13/25 07:32 02/13/25 08:10 Temperature 98.4 F Pulse Rate 59 L Pulse Rate [Pulse Oximeter] 65 Pulse Rate [Right Pulse Oximeter] Respiratory Rate 16 Blood Pressure 130/52 L Blood Pressure [Le ft Arm] 139/60 Blood Pressure [Ri ght Upper Arm] Pulse Oximetry 93 96 Oxygen Delivery Me thod Nasal Cannula Room Air Oxygen Flow Rate 2 Hospitalist - H&P: Result Labs Labs: Short CBC 02/13/25 Range/Units 01:58 WBC 10.92 (4.50-11.00) K/uL Hgb 14.1 (12.0-16.0) gm/dL Hct 43.9 (33.0-51.0) % Plt Count 251 (140-440) K/uL [facility] 02/13/25 01:58 Sodium 140 Potassium 4.0 Chloride 99 Carbon Dioxide 30 BUN 23 Creatinine 0.7 Glucose 170 H Calcium 9.4 Liver Function 02/13/25 Range/Units 01:58 Total Bilirubin 0.3 (0.1-1.5) mg/dL Direct Bilirubin 0.2 (0.0-0.5) mg/dL AST 32 (12-35) U/L ALT 28 (4-35) U/L Alkaline Phosphatase 115 (40-150) U/L Albumin 4.7 (3.3-5.0) g/dL
--- NOTE | 2025-02-13 13:15 | PC.NURSE ---
Shift Summary: Patient pleasant and cooperative. Up independently. Pain managed with PRN medication. NPO for surgery this afternoon.
[2025-02-13] MEDS: BUPIVACAINE 0.5% 30 ML INJECTION (14:20)
--- NOTE | 2025-02-13 15:38 | P.GSOP_ITS ---
Operative Note Date of procedure: 02/13/25 Pre-op diagnosis: Acute cholecystitis Post-op diagnosis: Same, partial necrosis of the gallbladder wall Type of Procedure: Laparoscopic cholecystectomy Indications: Patient is a 69-year-old female with clinical workup and symptoms consistent with acute cholecystitis. Risks and benefits of operative intervention were discussed at length with the patient. Risks included but was not limited to: Bleeding, infection, risk of damage to surrounding structures, possible need for additional procedures, possible need to convert to an open operation and postoperative complications such as pneumonia, pulmonary emboli or DE. All questions and concerns were addressed with the patient agreeing to proceed. Procedure Description: After discussing the risks and benefits of the procedure, the patient signed informed consent.? The operative site was marked and the patient was brought to the operating room and placed on the operating table in supine position.? Care was taken to pad the patient's pressure points.?? The patient was then intubated by anesthesia.?? The operative site was then prepped and draped in the usual sterile fashion.? A time-out was then performed. Entrance to the abdomen was gained via a 5 mm Visiport in the left upper quadr ant. The abdomen was insufflated and briefly surveyed for signs of injury. There was none. 11 mm umbilical port was placed as well as 2 working ports along the right costal margin. Patient was then placed in reverse Trendelenburg position with the right side up. The gallbladder was distended, edematous and hemorrhagic in appearance. There were partial areas of necrosis to the gallbladder wall as well. Approximately 90 mL of dark bilious fluid was aspirated through a laparoscopic needle to decompress the gallbladder. Once decompressed the fundus was grasped and retracted cephalad. At the midbody the wall of the gallbladder was densely adherent to the surrounding fat. The inflamed peritoneum of the gallbladder was dissected off with cautery. Using blunt dissection the adherent fat and peritoneum was pulled away from the gallbladder body. Dissection was then carried down to the infundibulum which was identified and grasped. A small artery along the body of the gallbladder was clipped proximally before dissected with cautery. A combination of hook cautery and blunt dissection was then used to carefully dissect out the cystic duct, which could clearly be seen going into the gallbladder. The posterior aspect of the gallbladder was then taken off of the liver bed, longterm up the liver. During this portion of the dissection no cystic artery was identified. 1 structure co uld be seen going into the gallbladder and was clearly identified as the cystic duct. Once this critical view was achieved 5 mm clips were placed across the cystic duct and transected with the scissors. The gallbladder was then taken off of the liver bed. During dissection a small tear in the body of the gallbladder occurred with spillage of 5 stones. Each of the stones was identified and able to be removed from the abdomen. The gallbladder was removed from the abdomen using an Endo-Catch bag. The gallbladder bed was surveyed for hemostasis. A small amount of bile which had spilled was suctioned from the abdomen. The ports were then removed under direct vision. The umbilical port fascia was closed with 0 Vicryl. The skin was closed with absorbable subcuticular suture. Instrument sponge and needle counts were correct at the end of the case. The patient was then woken and transferred to the PACU in stable condition. Findings: Acute cholecystitis, severe with necrosis of the gallbladder wall. Anesthesia: GETA Surgeon: Sophia Mccollum MD Estimated blood loss (mL): 25 Specimen: Gallbladder Condition: stable Disposition: PACU
--- NOTE | 2025-02-13 15:45 | P.ANES_ITS ---
Anesthesia Charges Start Date/Time Anesthesia Start Date: 02/13/25 Anesthesia Start Time: 13:49 Stop Date/Time Anesthesia Stop Date: 02/13/25 Anesthesia Stop Time: 15:45 Coding CPT Codes CPT Codes: ANESTH SURG UPPER ABDOMEN - 00322 ([id number]) P2 - PATIENT W/MILD SYST DISEASE, QK - APPLIED TECHNOLOGIST 2-4 CNCRNT ANES PROC, QX - DYEING MACHINE TENDER SVC W/ MD MED DIRECTION
--- NOTE | 2025-02-13 15:45 | W.ANESCHARGE ---
Anesthesia Charges Start Date/Time Anesthesia Start Date: 02/13/25 Anesthesia Start Time: 13:49 Stop Date/Time Anesthesia Stop Date: 02/13/25 Anesthesia Stop Time: 15:45 Coding CPT Codes CPT Codes: ANESTH SURG UPPER ABDOMEN - 53056 ([id number]) P2 - PATIENT W/MILD SYST DISEASE, QK - MILL DRESSER 2-4 CNCRNT ANES PROC, QX - INSURANCE PLAN SPECIALIST SVC W/ MD MED DIRECTION
--- NOTE | 2025-02-13 15:49 | P.ANES_ITS ---
Anesthesia Charges Start Date/Time Anesthesia Start Date: 02/13/25 Anesthesia Start Time: 13:49 Stop Date/Time Anesthesia Stop Date: 02/13/25 Anesthesia Stop Time: 15:45 Summary Extremes of Age - Over 70 or under 1: MDA Coding CPT Codes CPT Codes: ANESTH SURG UPPER ABDOMEN - 81533 ([id number]) QK - SOCIAL MEDIA MANAGER 2-4 CNCRNT ANES PROC, QX - EDUCATIONAL FUNDRAISING DIRECTOR SVC W/ MD MED DIRECTION, P2 - PATIENT W/MILD SYST DISEASE Additional Codes: Summary - Extremes of Age - Over 70 or under 1: MDA ([id number])
[2025-02-13] MEDS: ACETAMINOPHEN 325 MG TABLET 650 MG PO (18:18)
--- NOTE | 2025-02-13 19:23 | PC.NURSE ---
Nursing Care Hours: [id number] Pt arrived to the unit alert and oriented. Initially nauseated but relieved with cool washcloth. Tolerating regular soft diet. Pain treated per eMAR. Up to void and is independent in the room.
[2025-02-13] MEDS: HYDROCODONE-ACETAMIN 5-325 MG 1 TAB PO (22:24)
[2025-02-14 02:05] VITALS: BP 108/51; PULSE 53; RESP 15; TEMP 37.1; O2SAT 93
[2025-02-14] MEDS: HYDROCODONE-ACETAMIN 5-325 MG 1 TAB PO (05:51)
[2025-02-14 06:00] VITALS: BP 137/62; PULSE 53; RESP 17; TEMP 36.8; O2SAT 93
--- NOTE | 2025-02-14 08:32 | P.DS_ITS ---
DS: Providers Provider Date Seen: 02/14/25 Primary care physician: Carolina Celis MD Attending Physician on discharge: Yohannes Cisneros MD DS: Summary Hospital Course Hospital Course: Patient presented to the emergency department with right upper quadrant abdominal pain. She was admitted to the hospital and taken to the operating room for a laparoscopic cholecystectomy. Postop day 1 she was tolerating a low- fat diet, ambulating without difficulty and pain was well-controlled. Patient was able to be discharged home with plan for follow-up in 2 weeks. Time Spent with Patient Time attestation: Total time spent providing and/or coordinating discharge services: Exam Narrative: Exam Narrative: Abdomen: soft, non tender and non distended. Steri strips in place c/d/i. Const: Vital Signs, click to edit/add: Vital Signs - 24 hr 02/13/25 11:49 02/13/25 15:40 02/13/25 15:45 Temperature 98.6 F 98.6 F Pulse Rate 78 72 Pulse Rate [Pulse Oximeter] 64 Respiratory Rate 16 16 18 Blood Pressure 141/63 H 132/64 Blood Pressure [Le ft Arm] 130/53 L Pulse Oximetry 97 95 96 Oxygen Delivery Me thod Nasal Cannula Nasal Cannula Oxygen Flow Rate 2 2 02/13/25 15:50 02/13/25 15:55 02/13/25 16:00 Temperature Pulse Rate 69 64 75 Pulse Rate [Pulse Oximeter] Respiratory Rate 19 20 19 Blood Pressure 127/61 122/62 121/64 Blood Pressure [Le ft Arm] Pulse Oximetry 97 95 94 Oxygen Delivery Me thod Room Air Oxygen Flow Rate 02/13/25 16:05 02/13/25 16:10 02/13/25 16:20 Temperature 97.9 F 98.2 F Pulse Rate 67 75 Pulse Rate [Pulse Oximeter] 67 Respiratory Rate 17 18 16 Blood Pressure 126/57 L 122/62 Blood Pressure [Le ft Arm] 126/63 Pulse Oximetry 95 93 96 Oxygen Delivery Me thod Room Air Oxygen Flow Rate 02/13/25 16:30 02/13/25 16:45 02/13/25 17:00 Temperature Pulse Rate Pulse Rate [Pulse Oximeter] 60 58 L 61 Respiratory Rate 18 Blood Pressure Blood Pressure [Le ft Arm] 114/58 L 124/55 L 113/51 L Pulse Oximetry 94 93 93 Oxygen Delivery Me thod Room Air Room Air Room Air Oxygen Flow Rate 02/13/25 17:30 02/13/25 18:00 02/13/25 19:05 Temperature 99.2 F Pulse Rate Pulse Rate [Pulse Oximeter] 53 L 63 63 Respiratory Rate 18 Blood Pressure Blood Pressure [Le ft Arm] 122/51 L 124/54 L 118/53 L Pulse Oximetry 96 95 93 Oxygen Delivery Me thod Room Air Room Air Room Air Oxygen Flow Rate 02/13/25 20:05 02/13/25 20:56 02/13/25 22:05 Temperature 99.2 F 99.2 F 98.8 F Pulse Rate Pulse Rate [Pulse Oximeter] 63 63 64 Respiratory Rate 18 18 14 Blood Pressure Blood Pressure [Le ft Arm] 111/56 L 111/57 L Pulse Oximetry 93 93 93 Oxygen Delivery De thod Room Air Room Air Room Air Oxygen Flow Rate 02/13/25 23:00 02/13/25 23:00 02/14/25 02:05 Temperature 98.8 F Pulse Rate Pulse Rate [Pulse Oximeter] 64 53 L Respiratory Rate 14 14 15 Blood Pressure Blood Pressure [Le ft Arm] 108/51 L Pulse Oximetry 93 93 Oxygen Delivery De thod Room Air Room Air Oxygen Flow Rate 02/14/25 06:00 Temperature 98.3 F Pulse Rate Pulse Rate [Pulse Oximeter] 53 L Respiratory Rate 17 Blood Pressure Blood Pressure [Le ft Arm] 137/62 Pulse Oximetry 93 Oxygen Delivery Me thod Room Air Oxygen Flow Rate Discharge Plan Discharge Disposition: Home w/ Parent or Adult Discharging Surgeon: Sophia Mccollum Follow-Up Appointment: 2 week follow up Prescriptions: New hydrocodone-acetaminophen 5-325 mg tablet 1 tab PO Q6H PRN (Reason: pain) Qty: 15 0RF senna 8.6 mg capsule 8.6 mg PO DAILY PRN (Reason: constipation) Qty: 90 0RF Continued multivitamin [Multiple Vitamins] Tablet 1 tab PO DAILY calcium carbonate-vitamin D3 600 mg-10 mcg (400 unit) tablet 1 tab PO DAILY acyclovir 200 mg capsule 200 mg PO 5XD PRN lisinopril 10 mg tablet 10 mg PO DAILY Activity Level: No strenuous activity Activity Detail: Activity as tolerated. Avoid strenuous activity. No lifting greater than 20 lb for 2 weeks. Discharge Diet: Low Fat/Low Cholesterol Patient Instructions: Hydrocodone/Acetaminophen (By mouth), Senna (By mouth), NH+C Post-Operative Instructions: Laparoscopic Cholecystectomy Additional Instructions: You were prescribed a narcotic pain medication. In addition you may supplement with Tylenol and/or ibuprofen. Be sure to not exceed greater than 4 g of Tylenol in a 24 hour period. While on narcotic pain medicine please take stool softeners. A prescription of stool softeners has been sent to the pharmacy. Stop if having greater than 2 stools per day. You have Steri-Strips dressings in place, allow these to fall off on their own. Okay to shower. Do not soak in a bath or swim for 2 weeks. Follow-up with Dr. Mccollum in 2-3 weeks. Please call if you are experiencing severe pain, nausea, vomiting, difficulty urinating, fever or not had a bowel movement in 4 days after surgery. Follow-up: Sophia Mccollum MD [Staff Physician, General Surgery] - 02/22/25 2:45 pm Referral Note: [facility] for hospital follow-up. Carolina Celis MD [Primary Care Provider, Internal Medicine] Discharge Orders: Discharge Order (Routine); Ordered 02/14/25 Ordered By: Sophia Mccollum
== END 2025-02-14 08:51 | disposition home or self-care (01) ==
LOC: ED 02:47 → SS 06:58 → MEDSURG 07:59
PROVIDERS: Emergency Provider Family Medicine; PCP Internal Medicine; Visit Provider Surgery
PROC: 0FT44ZZ Resection of Gallbladder, Percutaneous Endoscopic Approach (ICD-10-PCS; CPT 47562; principal; 2025-02-13 13:15)
DX: K80.00 Calculus of gallbladder with acute cholecystitis without obstruction (principal); K82.A1 Gangrene of gallbladder in cholecystitis; I10 Essential (primary) hypertension; K76.0 Fatty (change of) liver, not elsewhere classified
CPT/HCPCS: 47562; 00790; 36415; 74177; 80053; 82248; 83605; 83690; 85025; 86140; 93005; 94761; 99100; 99285; A9270; J0665; J0744; J1100; J1171; J1200; J1836; J2270; J2405; J2704; J3010; J3490; J7030; J7120; Q9967